=== PATIENT | female | born 1995 | race Two or more races ===

== ENCOUNTER 2018-02-08 04:00 | Inpatient (IN) | payer MEDICAID, OTHER ==
[2018-02-08] VITALS (12 sets, daily range): BP systolic 104–126; BP diastolic 53–69
[~2018-02-08] VITALS: Ht 30.5 cm; Wt 0.5 kg
[2018-02-08] MEDS ORDERED: LACTATED RINGER'S 1,000 ML IV ONE (04:30)
[2018-02-08 05:37] LABS: Urine Bacteria NONE SEEN /hpf (None Seen); Urine Blood Negative /uL (Negative); Urine Mucus FEW (None Seen); Urine Specific Gravity 1.009 (1.001-1.035); Urine WBC 2 /hpf (0 - 5)
[2018-02-08 05:38] LABS: Basophils # (auto) 0 uL; Basophils % (auto) 0.3 % (0.0-2.0); Eosinophils # (auto) 0.1 uL; Eosinophils % (auto) 1.2 % (0.0-7.0); Hematocrit 38.2 % (36.0-46.0); Lymphocytes # (auto) 2.6 uL; Lymphocytes % (auto) 35.5 % (10.0-50.0); Mean Corpuscular Hemoglobin 29.8 pg (28.0-32.0); Mean Corpuscular Hgb Conc. 34.1 g/dL (32.0-36.0); Mean Corpuscular Volume 87.5 fL (80.0-100.0); Monocytes # (auto) 0.6 uL; Monocytes % (auto) 8.2 % (0.0-12.0); Neutrophils # (auto) 4.1 uL; Neutrophils % (auto) 54.8 % (37.0-80.0); Nucleated Red Blood Cells % 0.1 %; Platelet Count (auto) 170 10^3/uL (140-450); Red Blood Cells 4.37 10^6/uL (4.0-5.20); Red Cell Distribution Width 13.9 % (11.8-14.3); White Blood Cell 7.4 10^3/uL (4.4-10.8)
[2018-02-08 05:47] LABS: BUN/Creatinine Ratio 14.3; Bilirubin, Total 0.2 mg/dL (0.2-1.0); Calcium 8.8 mg/dL (8.5-10.1); INR 0.92 (0.9-1.15); Partial Thromboplastin Time 27.6 sec (22.64-33.71); Potassium 3.5 mmol/L (3.5-5.1)
[2018-02-08] MEDS: LACTATED RINGER'S 1,000 ML IV SCH ×3 (06:06→20:30)
[2018-02-08] MEDS ORDERED: PREN-96 PO (06:32)
[2018-02-08] MEDS ORDERED: OXYTOCIN 10UNIT/ML 1ML VIAL IV ONE (07:18)
[2018-02-08] MEDS ORDERED: TETRACAINE 1% INJ 2 ML VIAL IJ ONE (07:20)
[2018-02-08] MEDS ORDERED: MORPHINE SULF(PF) 0.5MG/ML 10ML VIAL ONE (07:33)
[2018-02-08] MEDS ORDERED: fentaNYL CITRATE 100 MCG/2 ML VL ONE (07:33)
[2018-02-08] MEDS ORDERED: MIDAZOLAM HCL 1MG/1ML-2 ML VIAL ONE (07:34)
[2018-02-08] MEDS ORDERED: LACT. RINGERS/OXYTOCIN 20UNITS 1,000 ML IV SCH (08:20)
[2018-02-08] MEDS ORDERED: PHENYLEPHRINE HCL 10 MG/ML VL ONE (08:28)
[2018-02-08] MEDS ORDERED: ceFAZolin 1GM/50ML 50 ML IV SCH (08:30)
[2018-02-08] MEDS ORDERED: MORPHINE SULF INJ 2 MG/ML SYRINGE 1ML IV PRN (08:30)
[2018-02-08] MEDS ORDERED: ONDANSETRON HCL 4 MG/2 ML VIAL IV PRN (08:30)
[2018-02-08] MEDS: ceFAZolin 1GM/50ML 50 ML IV SCH ×2 (13:39→22:05)
[2018-02-08] MEDS: KETOROLAC TROMETH 30 MG/ML 1ML VIAL IV PRN ×2 (13:39→22:05)
[2018-02-08 20:35] LABS: Basophils # (auto) 0 uL; Basophils % (auto) 0.4 % (0.0-2.0); Eosinophils # (auto) 0 uL; Eosinophils % (auto) 0.5 % (0.0-7.0); Hematocrit 34.1 % (36.0-46.0); Hemoglobin 11.7 g/dL (12.2-16.2); Lymphocytes # (auto) 2.2 uL; Lymphocytes % (auto) 22.6 % (10.0-50.0); Mean Corpuscular Hemoglobin 29.7 pg (28.0-32.0); Mean Corpuscular Hgb Conc. 34.3 g/dL (32.0-36.0); Mean Corpuscular Volume 86.7 fL (80.0-100.0); Monocytes # (auto) 0.6 uL; Monocytes % (auto) 6.4 % (0.0-12.0); Neutrophils # (auto) 6.9 uL; Neutrophils % (auto) 70.1 % (37.0-80.0); Nucleated Red Blood Cells % 0.1 %; Platelet Count (auto) 146 10^3/uL (140-450); Red Blood Cells 3.93 10^6/uL (4.0-5.20); Red Cell Distribution Width 13.7 % (11.8-14.3); White Blood Cell 9.8 10^3/uL (4.4-10.8)
[2018-02-09] VITALS (8 sets, daily range): BP systolic 107–127; BP diastolic 58–73
[2018-02-09] MEDS: ceFAZolin 1GM/50ML 50 ML IV SCH (05:50)
[2018-02-09] MEDS: KETOROLAC TROMETH 30 MG/ML 1ML VIAL IV PRN (05:52)
[2018-02-09] MEDS ORDERED: BISACODYL 10 MG RECT SUPP PR PRN (07:30)
[2018-02-09 07:42] LABS: Basophils # (auto) 0 uL; Basophils % (auto) 0.5 % (0.0-2.0); Eosinophils # (auto) 0.1 uL; Eosinophils % (auto) 1.3 % (0.0-7.0); Hematocrit 35.3 % (36.0-46.0); Hemoglobin 12.1 g/dL (12.2-16.2); Lymphocytes # (auto) 2.3 uL; Lymphocytes % (auto) 24.1 % (10.0-50.0); Mean Corpuscular Hemoglobin 29.8 pg (28.0-32.0); Mean Corpuscular Hgb Conc. 34.3 g/dL (32.0-36.0); Monocytes # (auto) 0.7 uL; Monocytes % (auto) 7.3 % (0.0-12.0); Neutrophils # (auto) 6.3 uL; Neutrophils % (auto) 66.8 % (37.0-80.0); Platelet Count (auto) 147 10^3/uL (140-450); Red Blood Cells 4.06 10^6/uL (4.0-5.20); Red Cell Distribution Width 13.9 % (11.8-14.3); White Blood Cell 9.5 10^3/uL (4.4-10.8)
[2018-02-09] MEDS: DOCUSATE CALCIUM 240 MG CAP PO SCH (09:18)
[2018-02-09] MEDS: HYDROcodone-ACET 5/325MG TAB PO PRN ×3 (09:19→22:00)
[2018-02-09] MEDS: DOCUSATE SOD 100 MG CAP PO SCH ×2 (09:19→21:58)
[2018-02-09] MEDS: IBUPROFEN 800 MG TAB PO PRN ×2 (13:33→21:00)
[2018-02-09] MEDS: SIMETHICONE 80 MG CHEWABLE TABLET PO SCH ×3 (13:33→21:58)
[2018-02-10 04:00] VITALS: BP 107/57
[2018-02-10] MEDS: IBUPROFEN 800 MG TAB PO PRN ×3 (06:53→17:54)
[2018-02-10] MEDS: SIMETHICONE 80 MG CHEWABLE TABLET PO SCH ×4 (06:53→21:49)
[2018-02-10 07:00] VITALS: BP 112/67
[2018-02-10] MEDS: DOCUSATE CALCIUM 240 MG CAP PO SCH (10:03)
[2018-02-10] MEDS: DOCUSATE SOD 100 MG CAP PO SCH ×2 (10:03→21:49)
[2018-02-10] MEDS: HYDROcodone-ACET 5/325MG TAB PO PRN ×2 (10:36→21:49)
[2018-02-10 11:03] VITALS: BP 122/68
[2018-02-10 15:10] VITALS: BP 120/68
[2018-02-10 19:00] VITALS: BP 121/79
[2018-02-10 23:00] VITALS: BP 119/59
[2018-02-11 04:00] VITALS: BP 114/57
[2018-02-11] MEDS: SIMETHICONE 80 MG CHEWABLE TABLET PO SCH (06:02)
[2018-02-11 06:41] VITALS: BP 137/70
[2018-02-11] MEDS: DOCUSATE SOD 100 MG CAP PO SCH (09:46)
[2018-02-11] MEDS: DOCUSATE CALCIUM 240 MG CAP PO SCH (09:46)
== END 2018-02-11 10:15 | disposition home or self-care (01) | DRG 540 ==
LOC: LDRP 04:00
PROVIDERS: ADMIT Specialist; ATTEND Specialist
PROC: 10D00Z1 Extraction of Products of Conception, Low, Open Approach (ICD-10-PCS; principal; 2018-02-08 07:18)
DX: O34.211 Maternal care for low transverse scar from previous cesarean delivery (principal); O21.0 Mild hyperemesis gravidarum; Z37.0 Single live birth; Z3A.38 38 weeks gestation of pregnancy
CPT/HCPCS: 36415; 51702; 59025; 80053; 81001; 85025; 85610; 85730; 86850; 86900; 86901; 94762; 96365; 96366; 96374; J0690; J1885; J2250; J2405